=== PATIENT | male | born 1985 | race Caucasian/White ===

== ENCOUNTER 2017-08-17 21:04 | Emergency (ER) | payer SELFPAY ==
[~2017-08-17] VITALS: Ht 170.2 cm; Wt 79.4 kg
[2017-08-17 21:10] VITALS: BP_SYST 158
[2017-08-17] MEDS ORDERED: KETOROLAC TROMETHAMINE 60 MG/2 ML VIAL IM ONE (21:30)
== END 2017-08-17 21:38 | disposition home or self-care (01) ==
LOC: SED 21:04
DX: M54.30 Sciatica, unspecified side (principal); R03.0 Elevated blood-pressure reading, without diagnosis of hypertension
CPT/HCPCS: 96372; 99283; J1885

== ENCOUNTER 2017-08-19 05:31 | Emergency (ER) | payer SELFPAY ==
[~2017-08-19] VITALS: Ht 170.2 cm; Wt 81.6 kg
[2017-08-19 05:40] VITALS: BP_SYST 151
[2017-08-19] MEDS ORDERED: KETOROLAC TROMETHAMINE 30 MG VIAL IM ONE (06:00)
[2017-08-19] MEDS ORDERED: CYCLOBENZAPRINE HCL 10 MG TABLET (FLEXERIL) PO ONE (06:00)
[2017-08-19] MEDS ORDERED: [UNRECOGNIZED DRUG - CODE] PO (06:01)
[2017-08-19] MEDS ORDERED: ERGO1TAB PO (06:01)
[2017-08-19] MEDS ORDERED: PRED1TAB PO (06:01)
[2017-08-19] MEDS ORDERED: MORPHINE 4 MG/ML INJ. SYRINGE IM ONE (06:30)
[2017-08-19] MEDS ORDERED: GABAPENTIN 300 MG CAPSULE PO ONE (07:30)
[2017-08-19] MEDS ORDERED: MORPHINE 4 MG/ML INJ. SYRINGE IVP ONE (08:45)
[2017-08-19 10:28] VITALS: BP_SYST 140
== END 2017-08-19 09:55 | disposition home or self-care (01) ==
LOC: SED 05:31
DX: M54.42 Lumbago with sciatica, left side (principal); Z79.899 Other long term (current) drug therapy
CPT/HCPCS: 72131; 96372; 99284; J1885; J2270